=== PATIENT | female | born 1980 | race African-American/Black ===

== ENCOUNTER 2024-12-11 14:31 | Inpatient (IN) ==
[2024-12-11] MEDS ORDERED: ACETAMINOPHEN 500 MG TAB PO STA (14:43)
[2024-12-11] MEDS ORDERED: CITRIC ACID/SODIUM CITRATE 15 ML UDC PO STA (14:43)
--- NOTE | 2024-12-11 14:45 | History & Physical Report ---
Date of Service December 11, 2024 Assessment & Plan (1) 38 weeks gestation of : (2) Gestational hypertension: (3) Carrier of group B Streptococcus: (4) Elderly multigravida: (5) Previous delivery affecting , antepartum: Plan Patient now meets criteria for ghtn. At 38 weeks, recommendation would be for proceeding with delivery. Even though pressures are more normal here, I believe the risks of GHTN and what could occur wtih this is outweighed by the ri sks of prematurity at 38 weeks. She agrees. Plan repeat c/s with sterilization. The risks of surgery were discussed with the patient including the risks of anesthesia, bleeding requiring transfusion, infection, poor wound healing, urinary retention, damage to surrounding structures including bowels, bladder, vessels, nerves and ureters that may require further surgery, hospitalization or intervention. The other risks of any surgery were discussed including heart attack, blood clots, stroke or . Discussed risk of injury to baby. Discussed alternatives to sterilization--hormones, vasectomy, ltrc. Patient last ate at 8:30. Since no severe symptoms and labs continue to be normal, plan to wait until 5:30 to proceed for staffing and need for assist. History of Present Illness Chief Complaint: elevated blood pressure Primary Care Provider: Leelee Neal MD Patient is a 43yoaaf with iup at 38 1/7 weeks. Patient has had borderline blood pressures for the last several visits. Was evaluated in labor and delivery yesterday after elevated blood pressures in the office. Pressures a bit better and labs were negative. Today in the office had elevated blood pressure of 140/87. She therefore fulfills the criteria now of GHTN and the recommendation is for proceeding with delivery. This will be her 4th c/s. and Delivery Plans AMA>40@del *Anatomy Scan @ 20wks * Echo 22-24wks (09/10/24)---normal *Growth scan @32wks *Weekly NST's @36 wks *Twice weekly NST @38wks *Weekly CAROLE's @38wks *Deliver by 40 wks *ASA 81mg Prior c-sections x3 - Repeat at 39 weeks C/S WITH TUBAL SCHEDULED FOR 12/20/[address] MAY AND DR. HURTK ASSIST. Hx delivery @ 34+6 weeks w/ Hx Short cervix *CX Length US Q 2 wk from 16-24 wks--short on first 16 week ultrasound *MFM for cerclage if cx length <2.5cm MFM Conuslt 07/18/24 @ [facility] [place]--cerclage placed cx 1.7cm Per MFM: Remove cerclage 36-37 weeks-removal scheduled 11/27/23 Dr. Up No further cervical lengths needed *vaginal progesterone 200mg Q HS Hyperthyroidism/thyromegaly - Sees Endocrinology Hx partial placental abruption - Hx IUGR GBS positive by Urine *Treat in Labor OB Labs: Blood Type O Positive 05/16/24 Antibody Screen NEGATIVE 05/16/24 Hgb 12.2 g/dl (12.0-16.0) 12/10/24 Hct 37.2 % (37.0-47.0) 12/10/24 MCV 82.1 fL (80.0-100.0) 12/10/24 Plt Count 243 K/uL (130-400) 12/10/24 Rubella IgG Antibody 1.40 Index 06/27/24 Treponema pallidum Ab Negative (Negative) 06/27/24 Hep Bs Antigen NON-REACTIVE (NON-REACTIVE) 06/27/24 Hepatitis C Ab (EIA) NON-REACTIVE (NON-REACTIVE) 06/27/24 HIV (1&2) Ag & Ab Conf NON-REACTIVE (NON-REACTIVE) 06/27/24 Glucose 1 Hr 50 gm 82 mg/dL (<135) 10/01/24 OB Optional Labs: Chlamydia trachomatis RNA Not Detected (NotDetected) 06/21/24 Neisseria gonorrhoeae RNA Not Detected (NotDetected) 06/21/24 Thyroid Stimulating Hormone (TSH) 0.62 uIU/mL (0.30-4.50) 10/01/24 gbs positive Allergies Allergy/AdvReac Type Severity Reaction Status Date / Time fish derived Allergy Intermediate "anchovy" Verified 12/11/24 14:41 -- Hives Home Medications Medication Instructions Recorded Confirmed Type breast pump #1 ea 10/21/24 12/11/24 Rx ascorbic acid (vitamin C) 500 mg 500 mg PO DAILY 11/26/24 12/11/24 History tablet (Vitamin C) aspirin 81 mg capsule 81 mg PO DAILY 11/26/24 12/11/24 History cholecalciferol (vitamin D3) 25 25 mcg PO DAILY 11/26/24 12/11/24 History mcg (1,000 unit) tablet ferrous sulfate 325 mg (65 mg 325 mg PO 3XWK 11/26/24 12/11/24 History iron) tablet vits no.124-ferrous fum 1 tab PO HS 11/26/24 12/11/24 History 27 mg iron-folic acid 800 mcg tablet ( Vitamin) progesterone micronized 200 mg 200 mg vaginal HS 11/26/24 12/11/24 History capsule fluocinonide 0.05 % topical 1 applic topical 5XWK Alopecia 12/06/24 12/11/24 History solution Patient History Medical History PONV (postoperative nausea and vomiting) Subclinical hyperthyroidism no medications - just monitoring Migraines Short cervix Placental abruption Alopecia History of chicken pox Surgical History History of cervical cerclage S/P wisdom tooth extraction S/P surgical removal of pilonidal cyst History of x3 Family History Mother Depression Father Hypertension Grandmother (Maternal) Alzheimer disease Cancer Aunt No problems noted. 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 Date GA wks Lbr Lgth wt Sex Type del Anes Place Del Prov ? Comment 06/04/15 39 5-2 M Spin al Other [facility]. Rufina N IUGR 12/05/16 34 M Other [facility]. Shonda na Y spontaneous labor 04/25/18 Aborted-Spontaneous 09/18/18 Aborted-Spontaneous 08/12/19 37 M Spinal Other S. Lorenza garcia N partial placental abruption 08/27/21 39 F Spinal O[place] r Erica N short cervix 06/19/23 Aborted-Spontaneous 01/23/24 Aborted-Spontaneous HVAC R TECH History noncontributory Physical Exam Constitutional: WD/WN, vitals as above Cardiovascular: Extremities: + edema (tr); no calf tenderness Gastrointestinal (Abdomen): soft, nt, nd, no ruq pain. Psychiatric: A+Ox3, euthymic affect Genitourinary: toco--occasional contraction efm--category one. Coding Level of Care Code None Diagnoses 38 weeks gestation of Z3A.38 Gestational hypertension O13.9 Carrier of group B Streptococcus Z22.330 Elderly multigravida O09.529 Previous delivery affecting , antepartum O34.219
[2024-12-11 15:15] LABS: Basophils # (auto) 0.02 K/uL (0.00-0.20); Basophils % (auto) 0.3 %; Eosinophils # (auto) 0.06 K/uL (0.00-0.50); Eosinophils % (auto) 0.9 %; Hematocrit (blood only) 39.9 % (37.0-47.0); Hemoglobin 12.7 g/dl (12.0-16.0); Immature Granulocytes # (auto) 0.03 K/uL (0.01-0.20); Immature Granulocytes % (auto) 0.5 %; Lymphocytes # (auto) 1.46 K/uL (1.20-3.40); Mean Corpuscular Hemoglobin 26.3 pg (25.0-34.0); Mean Corpuscular Hgb Conc 31.8 g/dL (32.0-36.0); Mean Corpuscular Volume 82.8 fL (80.0-100.0); Mean Platelet Volume 9.7 fL (9.4-12.4); Monocytes # (auto) 0.54 K/uL (0.11-0.59); Monocytes % (auto) 8.1 %; Neutrophils # (auto) 4.54 K/uL (1.40-6.50); Neutrophils % (auto) 68.2 %; Platelet Count 263 K/uL (130-400); RDW Coefficient of Variation 13.2 % (11.5-14.5); RDW Standard Deviation 39.5 fL (36.4-46.3); Red Blood Count 4.82 M/uL (4.20-5.40); White Blood Count 6.65 K/ul (4.8-10.8)
[2024-12-11] MEDS ORDERED: SODIUM CHLORIDE 0.9% 100 ML IV PRN (15:32)
[2024-12-11] MEDS: LACTATED RINGER'S 1,000 ML IV SCH ×2 (15:42→18:17)
[2024-12-11 15:57] LABS: Albumin Globulin Ratio 0.9 (0.9-2); Albumin Level 3.7 gm/dl (3.4-5.0); BUN Creatinine Ratio 12.5 (10-20); Bilirubin,Total 0.4 mg/dl (0.2-1.0); Creatinine Clr Calc Pharmacy 136.3 ml/min; Potassium 4.2 mmol/L (3.5-5.1); Total Protein 7.7 gm/dl (6.0-8.3)
[2024-12-11] MEDS: ACETAMINOPHEN 500 MG TAB PO SCH (17:46)
[2024-12-11] MEDS: ceFAZolin 2000MG 2,000 MG/15 ML SYR IV STA (19:58)
[2024-12-11] MEDS ORDERED: MoRPHine SULFATE PF 1 MG/ML 10 ML AMP/VIAL ONE (20:01)
[2024-12-11] MEDS ORDERED: OXYTOCIN 10 UNITS/ML VIAL ONE (20:14)
[2024-12-11] MEDS ORDERED: PHENYLEPHRINE HCL 25 MG/250 ML NSS IV ONE (20:14)
[2024-12-11] MEDS ORDERED: ONDANSETRON INJ 2 MG/ML 2 ML VIAL ONE (20:14)
[2024-12-11] MEDS ORDERED: PROMETHAZINE HCL INJ 25 MG/ML 1 ML VIAL ONE (20:45)
[2024-12-11] MEDS ORDERED: KETOROLAC 30 MG/ML VIAL ONE (20:47)
[2024-12-11] MEDS ORDERED: fentaNYL citrate PF 100 MCG/2 ML VIAL ONE (20:48)
[2024-12-11] MEDS: KETOROLAC 30 MG/ML VIAL IV SCH (20:50)
[2024-12-11] MEDS: OXYTOCIN 20 UNITS/LR 1,002 ML IV SCH (21:13)
[2024-12-11] MEDS ORDERED: MEPERIDINE HCL 25 MG/ML CARP/VIAL IV PRN (21:25)
[2024-12-11] MEDS ORDERED: NALOXONE HCL 0.4 MG/1 ML VIAL/CARP IV PRN (21:25)
[2024-12-11] MEDS ORDERED: NALOXONE HCL 0.08 MG in SYRINGE 1.8 ML IV PRN (21:25)
[2024-12-11] MEDS ORDERED: PROMETHAZINE 6.25 MG/50.25 ML BAG IV PRN (21:25)
[2024-12-11] MEDS ORDERED: ePHEDrine sulfate 50 MG/ML AMP IV PRN (21:25)
[2024-12-11] MEDS ORDERED: NALOXONE HCL 1 MG in SODIUM CHLORIDE 0.9% 1,000 ML IV PRN (21:25)
[2024-12-11] MEDS ORDERED: NALBUPHINE HCL INJ 10 MG/ML AMP IV PRN (21:25)
[2024-12-11] MEDS ORDERED: MoRPHine SULFATE 2 MG/ML CARP IV PRN (21:25)
[2024-12-11] MEDS ORDERED: ONDANSETRON INJ 2 MG/ML 2 ML VIAL IV PRN (21:25)
[2024-12-11] MEDS ORDERED: HYDROmorphone INJ 0.5 MG/0.5 ML SYR IV PRN (21:25)
[2024-12-11] MEDS ORDERED: oxyCODONE HCL IR 5 MG TAB (IMMEDIATE RELEASE) PO PRN (21:25)
[2024-12-11] MEDS ORDERED: diphenhydrAMINE 50 MG/ML VIAL IV PRN (21:25)
--- NOTE | 2024-12-11 21:25 | Operative Report ---
PG Post Operative Report Pre & Post Diagnosis Operation Date: 12/11/24 15:00 Pre-Op Diagnosis: 1. at 38.1 weeks gestation 2. GHTN 3. Hx: Previous section x3 Post-Op Diagnosis: Same as preop I identified the patient and participated in the time-out.: Yes Procedure Operation Date: 12/11/24 15:00 Actual Procedures p Repeat lower transverse Section in for delivery of [facility] at 2028 with bilateral tube removal(Bilateral) - Belinda Lopez MD, FACOG Surgeon Belinda Lopez MD, FACOG Monomer Recovery Supervisor Dr. Ivory Estimated Blood Loss 316 Findings Consistent with Post-Op Diagnosis normal appearing uterus, tubes and ovaries viable male infant, apgars 8/9 Fluids ivf--1500cc uop--250cc Specimens none Drains cox Anesthesia Type Spinal Complications none Disposition Accompanied Patient To Recovery: Yes Disposition: L&D Indications 43yof with hx of c/s x3 at 38 weeks, diagnosed with GHTN. Given this, proceeding with repeat c/s. Also desires permanent surgical sterilization Description of Procedure The patient was taken to the operating room where she was identified verbally and by bracelet. She was seated on the operating table where a spinal anesthetic was placed by anesthesia. She was then placed in the supine position with a leftward tilt. A Cox catheter was placed sterilely. the patient was prepped and draped in a normal standard fashion. the anesthetic was tested and found to be adequate. A time-out was held, identifying correct patient, procedure, positioning and preoperative antibiotics. There were no concerns. A Pfannenstiel skin incision was made with a knife and taken down to the underlying layer of fascia with the knife and Bovie electrocautery. Bleeding was attended to with the Bovie. The fascia was incised in the midline with the knife and taken out laterally with scissors. The superior edge of the fascial incision was grasped, elevated and the underlying layer of rectus muscle was taken off bluntly and with scissors. The peritoneal cavity was entered by doing this. There was no bowel or adhesions felt. In a similar fashion, the inferior edge of the fascial incision was grasped, elevated and the underlying layer of rectus muscle was taken off bluntly and with scissors. The muscles were already. The incision was then stretched. The bladder blade was placed. The vesicouterine peritoneum was identified, entered with scissors and taken out laterally with scissors. The bladder flap was created digitally A hysterotomy incision was scored with a knife , entered with a snap and the incision was stretched superiorly and inferiorly with the chyron operator's fingers. Clear fluid noted on amnitomy. The operators hand was placed into the incision and the head was delivered atraumatically with fundal pressure. Loose nuchal cord x 1 reduced. The nose and mouth were bulb suctioned. the rest of the infant was then delivered without difficulty. The baby was vigorous. The nose and mouth were again bulb suctioned. The cord was clamped and cut and the was then handed off to the awaiting marble installation helper for drying and attention. Cord blood and segment were obtained. The placenta was expressed. The uterus was exteriorized and cleared of all clot and debris with moistened laparotomy sponges. The hysterotomy incision was repaired in two layers, the first in a running locked layer, the second in an imbricating layer. Hemostasis was noted to be good. Posterior cul-de-sac was irrigated and cleared of all clot and debris. The hysterotomy incision was again inspected and found to be hemostatic. A bilateral salpingectomy was performed with the Ligasure first on the right and then on the left. Hemostasis at this site was excellent. the uterus was reinteriorized. Hysterotomy incision was again inspected and one suture was needed for hemostasis. Rectus muscles inspected and found to be hemostatic. The fascia was then reapproximated with 0 Vicryl starting at the edges and meeting in the midline. The subcuticular tissues were copiously irrigated and bleeding was attended to with cautery. The skin was then closed with 4-0 Vicryl in a subcuticular fashion. All sponge, lap and needle counts were correct x 2. The patient tolerated the procedure well and was taken to the recovery room in stable condition. I attest to the content of the Intraoperative Record and any orders documented therein. Any exceptions are noted below. OB Procedure Charges [id number] Add on Tubal for C/S
--- NOTE | 2024-12-11 21:27 | Anesthesiology Progress Note ---
Date of Service December 11, 2024 Anesthesia Post Procedure Vital Signs Vital Signs: Temp Pulse Resp BP Pulse Ox 12/11/24 21:23 77 120/67 12/11/24 21:22 78 96 12/11/24 21:17 72 96 12/11/24 21:13 75 134/78 94 12/11/24 21:12 75 94 12/11/24 19:00 36.8 C 18 12/11/24 18:55 78 130/78 12/11/24 16:24 71 123/83 12/11/24 16:09 72 120/81 12/11/24 15:55 70 129/83 12/11/24 15:46 68 129/79 12/11/24 15:24 76 133/83 12/11/24 15:09 77 128/87 12/11/24 15:05 36.6 C 79 18 125/82 12/11/24 14:51 79 125/82 Transfer of Care Handoff Completed per policy Notes Mental Status: alert / awake / arousable Patient Amnestic to Procedure: No Nausea / Vomiting: adequately controlled Pain: adequately controlled Airway Patency, RR, SpO2: stable & adequate BP & HR: stable & adequate Hydration State: stable & adequate Neuraxial Anesthesia: was administered and sensory block is resolving Anesthetic Complications: no major complications apparent and Pt Satisfied with anesthetic care
[2024-12-11] MEDS ORDERED: HYDROCORTISONE ACETATE 25 MG SUPP PR PRN (21:30)
[2024-12-11] MEDS ORDERED: DC INTRASPINAL MORPHINE SCH (21:30)
[2024-12-11] MEDS ORDERED: CALCIUM CARBONATE 500 MG CHEWABLE TAB PO PRN (21:30)
[2024-12-11] MEDS ORDERED: NO NARCOTICS OR SEDATIVES SCH (21:30)
[2024-12-11] MEDS ORDERED: MAGNESIUM HYDROXIDE SUSP 30 ML UDC PO PRN (21:30)
[2024-12-11] MEDS ORDERED: BENZOCAINE 20% SPRY 85 APPLN/85 GM CAN EXT PRN (21:30)
[2024-12-11] MEDS ORDERED: SENNA 8.6 MG TAB PO PRN (21:30)
[2024-12-11] MEDS: CITRIC ACID/SODIUM CITRATE 15 ML UDC PO SCH (21:42)
[2024-12-11] MEDS: DIPHTHER/TETAN/PERTUS Vaccine (Tdap, Adol/Adult) 0.5mL IM ONE (21:46)
[2024-12-12] MEDS: LACTATED RINGER'S 500 ML IV ONE (03:58)
[2024-12-12] MEDS: ACETAMINOPHEN 325 MG TAB PO SCH (04:15)
--- NOTE | 2024-12-12 05:59 | Obstetrical Progress Note ---
Date of Service December 12, 2024 Assessment & Plan (1) Gestational hypertension: (2) Carrier of group B Streptococcus: (3) History of prior with short cervix, currently : (4) Hyperthyroidism during : (5) Elderly multigravida: (6) Previous delivery affecting , antepartum: (7) examination following delivery: Plan Pt is 43 yo post- day 1 s/p CS at 38w1d. complicated by GHTN, GBS pos, s/p cerclage and hx of CS x3. Pt doing well. -Encourage ambulation and breast feeding -Pain control with tylenol, ibuprofen, and hydromorphone PRN -remove cox this morning -Discharge either 12/13 or 12/14 Admission and Anticipated Discharge Date Admission Date: December 11, 2024 Supervising Physician Co-Signing Physician Notes Resident Physician Supervision Note: I was present with Dr. Shankar during the history and exam. I discussed the case with the resident and agree with the findings and plan as documented in the note. Any exceptions or clarifications are listed here: Doing well with repeat c/s x 4 less than 12 hours ago. Had some decreased uop that has responded to bolus. no n/v, encouraged to push fluids. Today , cox out, void, encourage ambulation. Tolerated a regular diet last night. Incision c/d/i, ff/appro tender at u. Routine care. Documented By: Belinda Lopez MD, FACOG Subjective Pt is 43 yo post- day 1 s/p CS at 38w1d. complicated by GHTN, GBS pos, s/p cerclage and hx of CS x3 Ambulation:In and out of room Voiding:voiding normally Passing gas: no BM: no Diet tolerance:regular diet Lochia:bloody, no clots Feeding type: breast Current pain level: 3-4 /10 improved with current meds Resting comfortably this morning in NAD. Denies PORTILLO, CP, SOB, N/V/D, LE pain/swelling. Review of Systems Review of Systems: As per HPI Physical Exam Constitutional: WD/WN, vitals as above Respiratory: normal respiratory effort, lungs clear to auscultation Cardiovascular: RRR, no murmur, no edema Gastrointestinal (Abdomen): normal bowel sounds, soft, nontender, no hepatosplenomegaly Uterine fundus firm and at level of umbilicus Incision dressing with bright red blood noted inferiorly- likely lochia. Incision is clean, dry and well approximated Neurologic: PERRL, EOMI, accommodation nl, no face palsy, no dysarthria Moving all 4 extremities on command Psychiatric: A+Ox3, euthymic affect Results & Data Vital Signs (Past 12 Hours) Vital Signs Temp Pulse Pulse Resp BP BP Pulse Ox 12/12/24 01:30 18 95 12/12/24 00:30 18 96 12/11/24 23:55 18 97 12/11/24 23:55 37.1 C 71 18 127/79 97 12/11/24 23:13 36.7 C 14 12/11/24 23:13 68 139/71 12/11/24 23:12 69 98 12/11/24 23:07 76 100 12/11/24 23:03 63 138/72 12/11/24 23:02 66 99 12/11/24 22:57 63 98 12/11/24 22:53 69 143/78 H 12/11/24 22:52 78 100 12/11/24 22:47 64 100 12/11/24 22:44 77 156/87 H 12/11/24 22:43 36.7 C 18 12/11/24 22:42 76 100 12/11/24 22:37 74 100 12/11/24 22:34 69 134/65 12/11/24 22:32 68 99 12/11/24 22:27 70 99 12/11/24 22:24 71 163/74 H 12/11/24 22:22 73 99 12/11/24 22:17 68 100 12/11/24 22:14 66 131/81 12/11/24 22:12 66 98 12/11/24 22:07 73 99 12/11/24 22:03 70 130/63 12/11/24 22:02 70 100 12/11/24 21:57 65 99 12/11/24 21:54 67 131/62 12/11/24 21:53 20 12/11/24 21:52 70 99 12/11/24 21:47 64 99 12/11/24 21:43 14 12/11/24 21:43 67 127/69 12/11/24 21:42 65 100 12/11/24 21:37 76 99 12/11/24 21:33 20 12/11/24 21:33 64 132/72 12/11/24 21:32 66 100 12/11/24 21:27 68 98 12/11/24 21:23 14 12/11/24 21:23 77 120/67 12/11/24 21:22 78 96 12/11/24 21:17 72 96 12/11/24 21:13 36.7 C 18 12/11/24 21:13 75 134/78 94 12/11/24 21:12 75 94 12/11/24 21:03 22 12/11/24 19:00 36.8 C 18 12/11/24 18:55 78 130/78 O2 Del Method 12/12/24 01:30 12/12/24 00:30 12/11/24 23:55 12/11/24 23:55 Room Air 12/11/24 23:13 12/11/24 23:13 12/11/24 23:12 12/11/24 23:07 12/11/24 23:03 12/11/24 23:02 12/11/24 22:57 12/11/24 22:53 12/11/24 22:52 12/11/24 22:47 12/11/24 22:44 12/11/24 22:43 12/11/24 22:42 12/11/24 22:37 12/11/24 22:34 12/11/24 22:32 12/11/24 22:27 12/11/24 22:24 12/11/24 22:22 12/11/24 22:17 12/11/24 22:14 12/11/24 22:12 12/11/24 22:07 12/11/24 22:03 12/11/24 22:02 12/11/24 21:57 12/11/24 21:54 12/11/24 21:53 12/11/24 21:52 12/11/24 21:47 12/11/24 21:43 12/11/24 21:43 12/11/24 21:42 12/11/24 21:37 12/11/24 21:33 12/11/24 21:33 12/11/24 21:32 12/11/24 21:27 12/11/24 21:23 12/11/24 21:23 12/11/24 21:22 12/11/24 21:17 12/11/24 21:13 12/11/24 21:13 12/11/24 21:12 12/11/24 21:03 12/11/24 19:00 12/11/24 18:55 Resident Activity Tracking Resident Involvement: Resident Care Provided Care Provided: Adult Hospital Medicine
[2024-12-12 06:42] LABS: Basophils # (auto) 0.02 K/uL (0.00-0.20); Basophils % (auto) 0.2 %; Eosinophils # (auto) 0.07 K/uL (0.00-0.50); Eosinophils % (auto) 0.7 %; Hematocrit (blood only) 29.6 % (37.0-47.0); Hemoglobin 9.5 g/dl (12.0-16.0); Immature Granulocytes # (auto) 0.05 K/uL (0.01-0.20); Immature Granulocytes % (auto) 0.5 %; Lymphocytes # (auto) 1.44 K/uL (1.20-3.40); Lymphocytes % (auto) 14.9 %; Mean Corpuscular Hemoglobin 26.8 pg (25.0-34.0); Mean Corpuscular Hgb Conc 32.1 g/dL (32.0-36.0); Mean Corpuscular Volume 83.4 fL (80.0-100.0); Mean Platelet Volume 9.8 fL (9.4-12.4); Monocytes % (auto) 8.3 %; Neutrophils # (auto) 7.29 K/uL (1.40-6.50); Neutrophils % (auto) 75.4 %; Platelet Count 188 K/uL (130-400); RDW Coefficient of Variation 13.2 % (11.5-14.5); RDW Standard Deviation 39.5 fL (36.4-46.3); Red Blood Count 3.55 M/uL (4.20-5.40); White Blood Count 9.67 K/ul (4.8-10.8)
[2024-12-12] MEDS: MoRPHine SULFATE PF 1 MG/ML 10 ML AMP/VIAL INT SPINAL ONE (07:22)
[2024-12-12] MEDS: SIMETHICONE 80 MG CHEW PO SCH (08:33)
[2024-12-12] MEDS: PRENATAL VITAMIN 1 TAB PO SCH (08:34)
[2024-12-12] MEDS: FERROUS SULFATE 325 MG TAB PO SCH (08:34)
[2024-12-12] MEDS: DOCUSATE SODIUM 100 MG CAP PO SCH (08:34)
[2024-12-12] MEDS ORDERED: PROMETHAZINE 12.5 MG/50.5 ML BAG IV PRN (15:25)
[2024-12-12] MEDS ORDERED: ONDANSETRON INJ 2 MG/ML 2 ML VIAL IV PRN (15:25)
[2024-12-12] MEDS ORDERED: diphenhydrAMINE Capsule 25 MG CAP PO PRN (15:25)
[2024-12-12] MEDS ORDERED: oxyCODONE HCL IR 5 MG TAB (IMMEDIATE RELEASE) PO PRN (15:25)
[2024-12-12] MEDS ORDERED: HYDROmorphone INJ 0.5 MG/0.5 ML SYR IV PRN (15:25)
[2024-12-12] MEDS ORDERED: diphenhydrAMINE 50 MG/ML VIAL IV PRN (15:25)
[2024-12-12] MEDS: LACTATED RINGER'S 1,000 ML IV SCH (15:50)
[2024-12-12] MEDS ORDERED: KETOROLAC 30 MG/ML VIAL IV PRN (21:16)
[2024-12-12] MEDS: bisacodyL 5 MG TABEC PO SCH (21:43)
[2024-12-12] MEDS: IBUPROFEN 600 MG TAB PO SCH (21:43)
[2024-12-13 06:17] LABS: Hematocrit (blood only) 29.9 % (37.0-47.0); Hemoglobin 9.6 g/dl (12.0-16.0)
--- NOTE | 2024-12-13 06:28 | Obstetrical Progress Note ---
Date of Service December 13, 2024 Assessment & Plan (1) Gestational hypertension: (2) Carrier of group B Streptococcus: (3) History of prior with short cervix, currently : (4) Hyperthyroidism during : (5) Elderly multigravida: (6) Previous delivery affecting , antepartum: (7) examination following delivery: Plan Pt is 43 yo post- day 2 s/p CS at 38w1d. complicated by GHTN, GBS pos, s/p cerclage and hx of CS x3. Pt doing well, vitals are stable. -Encourage ambulation and breast feeding -Pain control with tylenol, ibuprofen, and oxycodone PRN -Discharge today Admission and Anticipated Discharge Date Admission Date: December 11, 2024 Supervising Physician Co-Signing Physician Notes Patient seen with resident and agree with the above findings and plan. Doing well denying any concerns. Stable for discharge. Subjective Pt is 43 yo post- day 2 s/p CS at 38w1d. complicated by GHTN, GBS pos, s/p cerclage and hx of CS x3 Ambulation:In and out of room Voiding:voiding normally Passing gas: no BM: no Diet tolerance:regular diet Lochia:bloody, small clots Feeding type: breast Current pain level: 1-3/10 improved with current meds Resting comfortably this morning in NAD. Denies PORTILLO, CP, SOB, N/V/D, LE pain/swelling. Review of Systems Review of Systems: As per HPI Physical Exam Constitutional: WD/WN, vitals as above Respiratory: normal respiratory effort, lungs clear to auscultation Cardiovascular: RRR, no murmur, no edema Gastrointestinal (Abdomen): normal bowel sounds, soft, nontender, no hepatosplenomegaly Uterine fundus at 1-2 cm below level of umbilicus Neurologic: PERRL, EOMI, accommodation nl, no face palsy, no dysarthria Psychiatric: A+Ox3, euthymic affect Results & Data Vital Signs (Past 12 Hours) Vital Signs Temp Pulse Resp BP Pulse Ox O2 Del Method 12/12/24 23:45 36.8 C 74 16 124/79 98 Room Air 12/12/24 19:45 Room Air 12/12/24 19:45 36.7 C 70 16 129/85 97 Room Air Resident Activity Tracking Resident Involvement: Resident Care Provided Care Provided: Adult Hospital Medicine
[2024-12-13 07:39] VITALS: TEMP 98.1
[2024-12-13 13:42] VITALS: BP 135/83; PULSE 77; RESP 16; O2SAT 99
[2024-12-13] MEDS ORDERED: bisacodyL 10 MG SUPP PR PRN (21:16)
[2024-12-13] MEDS ORDERED: IBUPROFEN 600 MG TAB PO PRN (21:16)
[2024-12-14] MEDS ORDERED: ACETAMINOPHEN 325 MG TAB PO PRN (03:16)
== END 2024-12-13 14:45 | disposition home or self-care (01) | DRG 788 ==
LOC: OPB 14:31 → 4S1 14:33 → 4E2 23:42
DX: O69.81X0 Labor and delivery complicated by cord around neck, without compression, not applicable or unspecified; O99.284 Endocrine, nutritional and metabolic diseases complicating childbirth; E05.80 Other thyrotoxicosis without thyrotoxic crisis or storm; Z30.2 Encounter for sterilization; O34.211 Maternal care for low transverse scar from previous cesarean delivery; Z37.0 Single live birth; Z79.82 Long term (current) use of aspirin; O13.4 Gestational [pregnancy-induced] hypertension without significant proteinuria, complicating childbirth; Z3A.38 38 weeks gestation of pregnancy; O99.824 Streptococcus B carrier state complicating childbirth